=== PATIENT | male | born 1935 | race Caucasian/White ===

== ENCOUNTER → 2016-02-16 | Outpatient (CLI) | payer MEDICARE, OTHER, MEDICAID ==
[~2016-02-16] MED LIST: ALDACTONE 25MG25 MG PO; BACTRIM DS 8001 TAB PO; CEPHALEXIN500 M1 PO; COUGH DROPS1 LOZ PO; DETROL LA4 MG PO; DULCOLAX10 MG RC; HUMALOG100 U/ML SQ; KLOR-CON20 MEQ PO; LAMISIL1% TP; LANTUS100 U/ML SQ; LASIX80 M1 PO; MAGNESIUM HYDROXIDE PO; MICONAZOLE CREA30 GM TOP; NITROSTAT0.4 MG/TAB SL; NORCO 325 MG-51 TAB PO; OMEPRAZOLE DR20 MG PO; PENTOXIFYLLINE400 MG PO; TYLENOL 325MG325 MG PO
== END ==
LOC: LAB 06:45
DX: E11.9 Type 2 diabetes mellitus without complications (principal)

== ENCOUNTER → 2016-05-16 | Outpatient (CLI) | payer MEDICARE, OTHER, MEDICAID | LOC: LAB 05:10 | DX: E11.9 Type 2 diabetes mellitus without complications (principal); I25.10 Atherosclerotic heart disease of native coronary artery without angina pectoris ==

== ENCOUNTER → 2016-08-15 | Outpatient (CLI) | payer MEDICARE, OTHER, MEDICAID ==
[2014-01-24 12:12] VITALS: BP 127/65
== END ==
LOC: LAB 06:10
DX: E11.9 Type 2 diabetes mellitus without complications (principal); I10 Essential (primary) hypertension

== ENCOUNTER → 2016-09-17 | Outpatient (CLI) | payer MEDICARE, OTHER, MEDICAID ==
[2014-01-24 12:12] VITALS: BP 127/65
== END ==
LOC: LAB 06:45
DX: E11.9 Type 2 diabetes mellitus without complications (principal)

== ENCOUNTER → 2016-11-15 | Outpatient (CLI) | payer MEDICARE, OTHER, MEDICAID ==
[2014-01-24 12:12] VITALS: BP 127/65
== END ==
LOC: LAB 07:00
DX: E11.8 Type 2 diabetes mellitus with unspecified complications (principal)

== ENCOUNTER → 2016-11-19 | Outpatient (CLI) | payer MEDICARE, OTHER, MEDICAID ==
[2014-01-24 12:12] VITALS: BP 127/65
== END ==
LOC: LAB 06:15
DX: I25.10 Atherosclerotic heart disease of native coronary artery without angina pectoris (principal); E11.9 Type 2 diabetes mellitus without complications; I10 Essential (primary) hypertension

== ENCOUNTER → 2016-12-17 | Outpatient (CLI) | payer MEDICARE, OTHER, MEDICAID ==
[2014-01-24 12:12] VITALS: BP 127/65
== END ==
LOC: LAB 06:15
DX: E11.9 Type 2 diabetes mellitus without complications (principal)

== ENCOUNTER → 2017-01-09 | Outpatient (CLI) | payer MEDICARE, OTHER, MEDICAID ==
[2014-01-24 12:12] VITALS: BP 127/65
[2017-01-09 12:44] LABS: BUN/CREATININE RATIO 15.2 (6.0-26.0); CALCIUM 8.9 mg/dL (8.4-10.2); POTASSIUM 4.5 mmol/L (3.6-5.0)
[2017-01-09 14:31] LABS: URINE APPEARANCE CLEAR; URINE COLOR YELLOW
[2017-01-09 14:32] LABS: URINE BILIRUBIN NEGATIVE (NEGATIVE); URINE BLOOD NEGATIVE (NEGATIVE); URINE KETONE NEGATIVE (NEGATIVE); URINE LEUKOCYTE ESTERASE NEGATIVE (NEGATIVE); URINE NITRATE NEGATIVE (NEGATIVE); URINE PROTEIN(semi-quant) NEGATIVE (NEGATIVE); URINE UROBILINOGEN NORMAL (NORMAL); URINE WBC 0-1 /hpf (0-3)
== END ==
LOC: LAB 12:15
PROVIDERS: Family Medicine
DX: E11.51 Type 2 diabetes mellitus with diabetic peripheral angiopathy without gangrene (principal)

== ENCOUNTER → 2017-02-15 | Outpatient (CLI) | payer MEDICARE, OTHER, MEDICAID ==
[2014-01-24 12:12] VITALS: BP 127/65
== END ==
LOC: LAB 11:34
DX: E11.9 Type 2 diabetes mellitus without complications (principal)

== ENCOUNTER → 2017-03-29 | Outpatient (CLI) | payer MEDICARE, OTHER, MEDICAID ==
[2014-01-24 12:12] VITALS: BP 127/65
== END ==
LOC: LAB 12:34
DX: Z13.83 Encounter for screening for respiratory disorder NEC (principal); R50.9 Fever, unspecified

== ENCOUNTER → 2017-03-29 | Outpatient (CLI) | payer MEDICARE, OTHER, MEDICAID ==
[2014-01-24 12:12] VITALS: BP 127/65
== END ==
LOC: LAB 06:30
DX: R07.0 Pain in throat (principal)

== ENCOUNTER → 2017-05-16 | Outpatient (CLI) | payer MEDICARE, OTHER, MEDICAID ==
[2014-01-24 12:12] VITALS: BP 127/65
[2017-05-16 07:10] LABS: ALBUMIN 3.2 g/dL (3.5-5.0); BUN/CREATININE RATIO 15.6 (6.0-26.0); CALCIUM 8.6 mg/dL (8.4-10.2); POTASSIUM 4.1 mmol/L (3.6-5.0); TOTAL BILIRUBIN 0.4 mg/dL (0.2-1.3); TOTAL PROTEIN 6.6 g/dL (6.3-8.2)
[2017-05-16 07:11] LABS: EOS # 0.3 (0.04-0.40); EOS % 4.2 % (0.0-4.0); HEMATOCRIT 42.1 % (42.0-52.0); LYMPH# 2.3 (1.50-4.00); MEAN CELL VOLUME 93 fl (78-100); MEAN CORPUSCULAR HEMOGLOBIN 31 pg (27-31); MEAN CORPUSCULAR HGB CONC 33 g/dL (33-37); MEAN PLATELET VOLUME 9.6 fl (7.4-10.4); MONO # 0.7 (0.20-0.80); NEU # 3.2 (1.40-6.50); PLATELET COUNT 193 K/mm3 (130-400); RED BLOOD COUNT 4.55 M/mm3 (4.20-5.60); RED CELL DISTRIBUTION WIDTH 13.6 % (11.5-14.5); WHITE BLOOD COUNT 6.5 K/mm3 (4.8-10.8)
[2017-05-16 14:19] LABS: PH-URINE 6.5 (5.0 - 8.0); URINE APPEARANCE CLEAR; URINE BILIRUBIN NEGATIVE (NEGATIVE); URINE BLOOD NEGATIVE (NEGATIVE); URINE COLOR YELLOW; URINE GLUCOSE NEGATIVE (NEGATIVE); URINE KETONE NEGATIVE (NEGATIVE); URINE LEUKOCYTE ESTERASE NEGATIVE (NEGATIVE); URINE NITRATE NEGATIVE (NEGATIVE); URINE PROTEIN(semi-quant) TRACE mg/dL (NEGATIVE); URINE UROBILINOGEN NORMAL (NORMAL)
[2017-05-16 14:20] LABS: ERYTHROCYTE SEDIMENTATION RATE 6 mm/hr (0-20)
[2017-05-16 16:10] LABS: CREATININE OTHER SOURCE 52 mg/dL (())
[2017-05-17 00:31] LABS: TESTOSTERONE 337 ng/dL (221-716)
== END ==
LOC: LAB 06:02
PROVIDERS: Internal Medicine
DX: E11.40 Type 2 diabetes mellitus with diabetic neuropathy, unspecified (principal); N52.9 Male erectile dysfunction, unspecified; I10 Essential (primary) hypertension; Z12.5 Encounter for screening for malignant neoplasm of prostate

== ENCOUNTER → 2017-06-11 | Outpatient (CLI) | payer MEDICARE, OTHER, MEDICAID ==
[2014-01-24 12:12] VITALS: BP 127/65
[2017-06-11 15:09] LABS: EOS # 0.3 (0.04-0.40); EOS % 2.8 % (0.0-4.0); HEMATOCRIT 47.6 % (42.0-52.0); HEMOGLOBIN 15.5 g/dL (13.5-18.0); LYMPH# 3.8 (1.50-4.00); MEAN CELL VOLUME 92 fl (78-100); MEAN CORPUSCULAR HEMOGLOBIN 30 pg (27-31); MEAN CORPUSCULAR HGB CONC 33 g/dL (33-37); MEAN PLATELET VOLUME 9.1 fl (7.4-10.4); MONO # 0.9 (0.20-0.80); NEU # 4.7 (1.40-6.50); PLATELET COUNT 255 K/mm3 (130-400); RED BLOOD COUNT 5.16 M/mm3 (4.20-5.60); RED CELL DISTRIBUTION WIDTH 14.3 % (11.5-14.5); WHITE BLOOD COUNT 9.8 K/mm3 (4.8-10.8)
[2017-06-11 15:23] LABS: BUN/CREATININE RATIO 15.9 (6.0-26.0); CALCIUM 8.9 mg/dL (8.4-10.2); POTASSIUM 3.6 mmol/L (3.6-5.0)
== END ==
LOC: LAB 14:54
PROVIDERS: Nurse Practitioner Family
DX: I73.9 Peripheral vascular disease, unspecified (principal); L03.90 Cellulitis, unspecified; R60.0 Localized edema

== ENCOUNTER → 2017-08-07 | Outpatient (CLI) | payer MEDICARE, OTHER, MEDICAID ==
[2014-01-24 12:12] VITALS: BP 127/65
[2017-08-07 08:44] LABS: BUN/CREATININE RATIO 19.5 (6.0-26.0); POTASSIUM 3.7 mmol/L (3.6-5.0)
== END ==
LOC: LAB 07:48
PROVIDERS: Internal Medicine
DX: I50.9 Heart failure, unspecified (principal); I10 Essential (primary) hypertension

== ENCOUNTER → 2017-08-13 | Outpatient (CLI) | payer MEDICARE, OTHER, MEDICAID ==
[2014-01-24 12:12] VITALS: BP 127/65
== END ==
LOC: LAB 14:37
DX: L03.115 Cellulitis of right lower limb (principal)

== ENCOUNTER → 2017-08-20 | Outpatient (CLI) | payer MEDICARE, OTHER, MEDICAID ==
[2014-01-24 12:12] VITALS: BP 127/65
[2017-08-20 12:48] LABS: BUN/CREATININE RATIO 12.5 (6.0-26.0); CALCIUM 8.3 mg/dL (8.4-10.2); POTASSIUM 4.3 mmol/L (3.6-5.0)
== END ==
LOC: LAB 12:25
PROVIDERS: Internal Medicine
DX: E11.9 Type 2 diabetes mellitus without complications (principal); L03.115 Cellulitis of right lower limb; R60.9 Edema, unspecified

== ENCOUNTER → 2017-09-16 | Outpatient (CLI) | payer MEDICARE, OTHER, MEDICAID ==
[2014-01-24 12:12] VITALS: BP 127/65
== END ==
LOC: LAB 06:25
DX: E11.9 Type 2 diabetes mellitus without complications (principal)

== ENCOUNTER → 2017-09-23 | Outpatient (CLI) | payer MEDICARE, OTHER, MEDICAID ==
[2014-01-24 12:12] VITALS: BP 127/65
== END ==
LOC: LAB 13:50
DX: Z12.5 Encounter for screening for malignant neoplasm of prostate (principal); R20.2 Paresthesia of skin; E11.40 Type 2 diabetes mellitus with diabetic neuropathy, unspecified; N52.9 Male erectile dysfunction, unspecified; I10 Essential (primary) hypertension

== ENCOUNTER → 2017-10-17 | Outpatient (CLI) | payer MEDICARE, OTHER, MEDICAID ==
[2014-01-24 12:12] VITALS: BP 127/65
== END ==
LOC: LAB 11:00
DX: E11.9 Type 2 diabetes mellitus without complications (principal)

== ENCOUNTER → 2017-11-15 | Outpatient (CLI) | payer MEDICARE, OTHER, MEDICAID ==
[2014-01-24 12:12] VITALS: BP 127/65
[2017-11-15 08:43] LABS: HEMATOCRIT 45.4 % (42.0-52.0); HEMOGLOBIN 15.1 g/dL (13.5-18.0); MEAN PLATELET VOLUME 9.8 fl (7.4-10.4); RED BLOOD COUNT 4.93 M/mm3 (4.20-5.60); RED CELL DISTRIBUTION WIDTH 13.5 % (11.5-14.5); WHITE BLOOD COUNT 7.3 K/mm3 (4.8-10.8)
[2017-11-15 08:50] LABS: ALBUMIN 3.9 g/dL (3.5-5.0); CALCIUM 8.6 mg/dL (8.4-10.2); POTASSIUM 3.8 mmol/L (3.6-5.0); TOTAL BILIRUBIN 0.8 mg/dL (0.2-1.3); TOTAL PROTEIN 7.6 g/dL (6.3-8.2)
== END ==
LOC: LAB 07:30
PROVIDERS: Internal Medicine
DX: E11.9 Type 2 diabetes mellitus without complications (principal); I70.90 Unspecified atherosclerosis

== ENCOUNTER → 2017-12-07 | Outpatient (CLI) | payer MEDICARE, OTHER, MEDICAID ==
[2014-01-24 12:12] VITALS: BP 127/65
[2017-12-07 15:41] LABS: PH-URINE 6.5 (5.0 - 8.0); URINE APPEARANCE CLOUDY; URINE BILIRUBIN NEGATIVE (NEGATIVE); URINE BLOOD TRACE (NEGATIVE); URINE COLOR YELLOW; URINE GLUCOSE NEGATIVE (NEGATIVE); URINE KETONE NEGATIVE (NEGATIVE); URINE LEUKOCYTE ESTERASE 2+ (NEGATIVE); URINE NITRATE NEGATIVE (NEGATIVE); URINE PROTEIN(semi-quant) TRACE mg/dL (NEGATIVE); URINE UROBILINOGEN NORMAL (NORMAL); URINE WBC >50 /hpf (0-3)
== END ==
LOC: LAB 14:17
PROVIDERS: Internal Medicine
DX: R30.0 Dysuria (principal)

== ENCOUNTER → 2017-12-17 | Outpatient (CLI) | payer MEDICARE, OTHER, MEDICAID ==
[2014-01-24 12:12] VITALS: BP 127/65
== END ==
LOC: LAB 05:45
DX: E11.9 Type 2 diabetes mellitus without complications (principal)

== ENCOUNTER → 2018-02-06 | Outpatient (CLI) | payer MEDICARE, OTHER, MEDICAID ==
[2014-01-24 12:12] VITALS: BP 127/65
[2018-02-06 11:44] LABS: ALBUMIN 4.3 g/dL (3.5-5.0); CALCIUM 8.9 mg/dL (8.4-10.2); POTASSIUM 4.1 mmol/L (3.6-5.0); TOTAL BILIRUBIN 0.6 mg/dL (0.2-1.3); TOTAL PROTEIN 7.8 g/dL (6.3-8.2)
[2018-02-06 12:13] LABS: URINE APPEARANCE CLEAR; URINE BILIRUBIN NEGATIVE (NEGATIVE); URINE BLOOD NEGATIVE (NEGATIVE); URINE COLOR YELLOW; URINE KETONE NEGATIVE (NEGATIVE); URINE LEUKOCYTE ESTERASE NEGATIVE (NEGATIVE); URINE NITRATE NEGATIVE (NEGATIVE); URINE PROTEIN(semi-quant) TRACE mg/dL (NEGATIVE); URINE UROBILINOGEN NORMAL (NORMAL); URINE WBC 0-1 /hpf (0-3)
[2018-02-06 13:41] LABS: ERYTHROCYTE SEDIMENTATION RATE 14 mm/hr (0-20)
[2018-02-06 13:44] LABS: EOS # 0.1 (0.04-0.40); EOS % 1.8 % (0.0-4.0); HEMATOCRIT 45.6 % (42.0-52.0); LYMPH# 1.9 (1.50-4.00); MEAN CELL VOLUME 92 fl (78-100); MEAN CORPUSCULAR HEMOGLOBIN 30 pg (27-31); MEAN CORPUSCULAR HGB CONC 33 g/dL (33-37); MEAN PLATELET VOLUME 10.1 fl (7.4-10.4); MONO # 0.5 (0.20-0.80); NEU # 4.6 (1.40-6.50); PLATELET COUNT 239 K/mm3 (130-400); RED BLOOD COUNT 4.98 M/mm3 (4.20-5.60); RED CELL DISTRIBUTION WIDTH 14.2 % (11.5-14.5); WHITE BLOOD COUNT 7.3 K/mm3 (4.8-10.8)
[2018-02-07 12:40] LABS: TESTOSTERONE 303 ng/dL (221-716)
== END ==
LOC: LAB 11:08
PROVIDERS: Internal Medicine
DX: E11.40 Type 2 diabetes mellitus with diabetic neuropathy, unspecified (principal); I10 Essential (primary) hypertension; G47.33 Obstructive sleep apnea (adult) (pediatric); N52.9 Male erectile dysfunction, unspecified

== ENCOUNTER → 2018-05-16 | Outpatient (CLI) | payer MEDICARE, OTHER ==
[2014-01-24 12:12] VITALS: BP 127/65
[2018-05-16 08:55] LABS: EOS # 0.1 (0.04-0.40); EOS % 1.2 % (0.0-4.0); HEMATOCRIT 44.1 % (42.0-52.0); HEMOGLOBIN 14.6 g/dL (13.5-18.0); LYMPH# 1.9 (1.50-4.00); MEAN CELL VOLUME 92 fl (78-100); MEAN CORPUSCULAR HEMOGLOBIN 31 pg (27-31); MEAN CORPUSCULAR HGB CONC 33 g/dL (33-37); MEAN PLATELET VOLUME 9.8 fl (7.4-10.4); NEU # 8.8 (1.40-6.50); PLATELET COUNT 211 K/mm3 (130-400); RED BLOOD COUNT 4.79 M/mm3 (4.20-5.60); RED CELL DISTRIBUTION WIDTH 13.7 % (11.5-14.5); WHITE BLOOD COUNT 11.9 K/mm3 (4.8-10.8)
[2018-05-16 09:04] LABS: ALBUMIN 4.1 g/dL (3.5-5.0); CALCIUM 8.8 mg/dL (8.4-10.2); POTASSIUM 4.1 mmol/L (3.6-5.0); TOTAL BILIRUBIN 0.8 mg/dL (0.2-1.3); TOTAL PROTEIN 7.6 g/dL (6.3-8.2)
== END ==
LOC: LAB 07:55
PROVIDERS: Internal Medicine
DX: E11.9 Type 2 diabetes mellitus without complications (principal); R60.9 Edema, unspecified

== ENCOUNTER → 2018-05-22 | Outpatient (CLI) | payer MEDICARE, OTHER ==
[2014-01-24 12:12] VITALS: BP 127/65
[2018-05-22 08:34] LABS: HEMATOCRIT 44.4 % (42.0-52.0); HEMOGLOBIN 14.4 g/dL (13.5-18.0); MEAN PLATELET VOLUME 9.5 fl (7.4-10.4); RED BLOOD COUNT 4.8 M/mm3 (4.20-5.60); RED CELL DISTRIBUTION WIDTH 13.7 % (11.5-14.5); WHITE BLOOD COUNT 6.8 K/mm3 (4.8-10.8)
== END ==
LOC: LAB 07:20
PROVIDERS: Internal Medicine
DX: D72.829 Elevated white blood cell count, unspecified (principal)

== ENCOUNTER → 2018-05-27 | Outpatient (CLI) | payer MEDICARE, OTHER ==
[2014-01-24 12:12] VITALS: BP 127/65
[2018-05-27 11:11] LABS: EOS # 0.1 (0.04-0.40); EOS % 1.2 % (0.0-4.0); HEMATOCRIT 43.3 % (42.0-52.0); HEMOGLOBIN 14.1 g/dL (13.5-18.0); LYMPH# 1.6 (1.50-4.00); MEAN CELL VOLUME 93 fl (78-100); MEAN CORPUSCULAR HEMOGLOBIN 30 pg (27-31); MEAN CORPUSCULAR HGB CONC 33 g/dL (33-37); MEAN PLATELET VOLUME 8.8 fl (7.4-10.4); MONO # 0.7 (0.20-0.80); NEU # 6.2 (1.40-6.50); PLATELET COUNT 236 K/mm3 (130-400); RED BLOOD COUNT 4.68 M/mm3 (4.20-5.60); RED CELL DISTRIBUTION WIDTH 13.5 % (11.5-14.5); WHITE BLOOD COUNT 8.5 K/mm3 (4.8-10.8)
[2018-05-27 11:27] LABS: URINE APPEARANCE CLOUDY; URINE COLOR YELLOW; URINE GLUCOSE NEGATIVE (NEGATIVE); URINE PROTEIN(semi-quant) 1+ mg/dL (NEGATIVE)
[2018-05-27 11:28] LABS: URINE BILIRUBIN NEGATIVE (NEGATIVE); URINE BLOOD 50 ery/uL (NEGATIVE); URINE KETONE NEGATIVE (NEGATIVE); URINE LEUKOCYTE ESTERASE 2+ (NEGATIVE); URINE NITRATE POSITIVE (NEGATIVE); URINE UROBILINOGEN NORMAL (NORMAL); URINE WBC >50 /hpf (0-3)
== END ==
LOC: LAB 10:47
PROVIDERS: Nurse Practitioner Family
DX: K44.9 Diaphragmatic hernia without obstruction or gangrene (principal); R05 Cough; R30.0 Dysuria

== ENCOUNTER → 2018-09-25 | Outpatient (CLI) | payer MEDICARE, OTHER ==
[2014-01-24 12:12] VITALS: BP 127/65
[2018-09-25 10:30] LABS: EOS # 0.2 (0.04-0.40); EOS % 3.1 % (0.0-4.0); HEMATOCRIT 43.2 % (42.0-52.0); HEMOGLOBIN 14.1 g/dL (13.5-18.0); LYMPH# 1.8 (1.50-4.00); MEAN CELL VOLUME 92 fl (78-100); MEAN CORPUSCULAR HEMOGLOBIN 30 pg (27-31); MEAN CORPUSCULAR HGB CONC 33 g/dL (33-37); MONO # 0.7 (0.20-0.80); NEU # 4.5 (1.40-6.50); PLATELET COUNT 232 K/mm3 (130-400); RED CELL DISTRIBUTION WIDTH 13.2 % (11.5-14.5); WHITE BLOOD COUNT 7.2 K/mm3 (4.8-10.8)
[2018-09-25 10:39] LABS: ALBUMIN 3.6 g/dL (3.4-4.8); POTASSIUM 3.8 mmol/L (3.5-5.1)
[2018-09-25 10:41] LABS: CALCIUM 8.7 mg/dL (8.3-10.5)
[2018-09-25 10:42] LABS: TOTAL PROTEIN 7.6 g/dL (6.2-8.1)
[2018-09-25 10:44] LABS: TOTAL BILIRUBIN 0.6 mg/dL (0.2-1.2)
== END ==
LOC: LAB 10:18
PROVIDERS: Internal Medicine
DX: E11.40 Type 2 diabetes mellitus with diabetic neuropathy, unspecified (principal); I10 Essential (primary) hypertension; G47.33 Obstructive sleep apnea (adult) (pediatric)

== ENCOUNTER 2018-10-03 14:55 | Emergency (ER) | payer MEDICARE, OTHER ==
[~2018-10-03] VITALS: Ht 154.9 cm; Wt 115.5 kg
[~2018-10-03 14:55] MED LIST changes: +INSULIN HUMA100 U/ML SQ; +LANTUS PEN100 U/ML SQ; -LANTUS100 U/ML SQ
[2018-10-03 15:29] LABS: HEMATOCRIT 43.2 % (42.0-52.0); HEMOGLOBIN 14.6 g/dL (13.5-18.0); MEAN CELL VOLUME 88 fl (78-100); MEAN CORPUSCULAR HEMOGLOBIN 30 pg (27-31); MEAN CORPUSCULAR HGB CONC 34 g/dL (33-37); MEAN PLATELET VOLUME 9.2 fl (7.4-10.4); PLATELET COUNT 230 K/mm3 (130-400); RED BLOOD COUNT 4.93 M/mm3 (4.20-5.60); RED CELL DISTRIBUTION WIDTH 12.9 % (11.5-14.5)
[2018-10-03 15:53] LABS: ALBUMIN 3.5 g/dL (3.4-4.8)
[2018-10-03 15:54] LABS: POTASSIUM 4.5 mmol/L (3.5-5.1)
[2018-10-03 15:55] LABS: CALCIUM 8.2 mg/dL (8.3-10.5)
[2018-10-03 15:56] LABS: TOTAL PROTEIN 7.1 g/dL (6.2-8.1)
[2018-10-03 15:58] LABS: TOTAL BILIRUBIN 0.6 mg/dL (0.2-1.2)
[2018-10-03] MEDS ORDERED: INSULIN HUMA100 U/ML SQ ×2 (16:02→16:04)
[2018-10-03] MEDS ORDERED: DITROPAN 5MG TAB5 MG PO (16:06)
[2018-10-03] MEDS ORDERED: LASIX80 M1 PO (16:06)
[2018-10-03] MEDS ORDERED: ROBITUSSIN COU237 M2 PO (16:07)
[2018-10-03] MEDS ORDERED: PEPCID 20MG TAB20 MG PO (16:07)
[2018-10-03] MEDS ORDERED: CYANOCOBAL1000 MCG/1 IM (16:09)
[2018-10-03 16:17] LABS: LYMPHOCYTE 10 % (20-51); MONOCYTE 4 % (3-10); NEUTROPHILS 86 % (42-75)
[2018-10-03 16:18] LABS: URINE APPEARANCE CLEAR; URINE BILIRUBIN NEGATIVE (NEGATIVE); URINE BLOOD NEGATIVE (NEGATIVE); URINE COLOR YELLOW; URINE KETONE NEGATIVE (NEGATIVE); URINE LEUKOCYTE ESTERASE NEGATIVE (NEGATIVE); URINE NITRATE NEGATIVE (NEGATIVE); URINE PROTEIN(semi-quant) TRACE mg/dL (NEGATIVE); URINE UROBILINOGEN NORMAL (NORMAL)
[2018-10-03 16:19] LABS: URINE WBC 0-1 /hpf (0-3)
[2018-10-03 18:17] VITALS: BP 168/60
== END 2018-10-03 19:45 | disposition short-term general hospital (02) ==
LOC: ED 14:55
PROVIDERS: Nurse Practitioner
DX: E87.1 Hypo-osmolality and hyponatremia (principal); I11.0 Hypertensive heart disease with heart failure; E11.9 Type 2 diabetes mellitus without complications; I73.9 Peripheral vascular disease, unspecified; I50.9 Heart failure, unspecified; Z98.890 Other specified postprocedural states; Z79.4 Long term (current) use of insulin
CPT/HCPCS: J7030

== ENCOUNTER → 2018-10-10 | Outpatient (CLI) | payer MEDICARE, OTHER ==
[2018-10-03 18:17] VITALS: BP 168/60
[~2018-10-10] MED LIST changes: +CYANOCOBAL1000 MCG/1 IM; +DITROPAN 5MG TAB5 MG PO; +PEPCID 20MG TAB20 MG PO; +ROBITUSSIN COU237 M2 PO
[2018-10-10 17:44] LABS: URINE APPEARANCE HAZY; URINE COLOR YELLOW
[2018-10-10 17:45] LABS: URINE BILIRUBIN NEGATIVE (NEGATIVE); URINE GLUCOSE NEGATIVE (NEGATIVE); URINE KETONE NEGATIVE (NEGATIVE); URINE NITRATE NEGATIVE (NEGATIVE); URINE PROTEIN(semi-quant) TRACE mg/dL (NEGATIVE); URINE UROBILINOGEN NORMAL (NORMAL)
[2018-10-10 17:46] LABS: URINE BLOOD NEGATIVE (NEGATIVE); URINE LEUKOCYTE ESTERASE 1+ (NEGATIVE); URINE WBC 0-1 /hpf (0-3)
[2018-10-10 17:47] LABS: URINE MUCUS PRESENT (NOT PRESENT)
== END ==
LOC: LAB 16:25
PROVIDERS: Internal Medicine
DX: N30.90 Cystitis, unspecified without hematuria (principal)

== ENCOUNTER → 2018-11-17 | Outpatient (CLI) | payer MEDICARE, OTHER ==
[2018-11-17 08:32] LABS: HEMATOCRIT 47.4 % (42.0-52.0); HEMOGLOBIN 15.3 g/dL (13.5-18.0); MEAN PLATELET VOLUME 9.8 fl (7.4-10.4); RED BLOOD COUNT 5.34 M/mm3 (4.20-5.60); RED CELL DISTRIBUTION WIDTH 14.3 % (11.5-14.5); WHITE BLOOD COUNT 11.9 K/mm3 (4.8-10.8)
[2018-11-17 08:39] LABS: POTASSIUM 3.4 mmol/L (3.5-5.1)
[2018-11-17 08:40] LABS: ALBUMIN 3.6 g/dL (3.4-4.8)
[2018-11-17 08:41] LABS: CALCIUM 8.7 mg/dL (8.3-10.5)
[2018-11-17 08:44] LABS: TOTAL BILIRUBIN 0.5 mg/dL (0.2-1.2)
== END ==
LOC: LAB 07:05
PROVIDERS: Internal Medicine
DX: E11.65 Type 2 diabetes mellitus with hyperglycemia (principal)

== ENCOUNTER → 2018-12-02 | Outpatient (CLI) | payer MEDICARE, OTHER ==
[2018-12-02 06:00] LABS: CALCIUM 8.9 mg/dL (8.3-10.5); MAGNESIUM 2.04 mg/dL (1.60-2.60); POTASSIUM 3.4 mmol/L (3.5-5.1)
== END ==
LOC: LAB 05:20
PROVIDERS: Internal Medicine
DX: I10 Essential (primary) hypertension (principal)

== ENCOUNTER → 2019-01-02 | Outpatient (CLI) | payer MEDICARE, OTHER ==
[2019-01-02 10:01] LABS: POTASSIUM 3.9 mmol/L (3.5-5.1)
[2019-01-02 10:02] LABS: CALCIUM 9.2 mg/dL (8.3-10.5)
[2019-01-02 10:08] LABS: MAGNESIUM 1.95 mg/dL (1.60-2.60)
== END ==
LOC: LAB 09:25
PROVIDERS: Internal Medicine
DX: E11.9 Type 2 diabetes mellitus without complications (principal); I50.9 Heart failure, unspecified

== ENCOUNTER → 2019-02-16 | Outpatient (CLI) | payer MEDICARE, OTHER ==
[2019-02-16 08:16] LABS: POTASSIUM 3.9 mmol/L (3.5-5.1)
[2019-02-16 08:17] LABS: ALBUMIN 3.9 g/dL (3.4-4.8)
[2019-02-16 08:18] LABS: CALCIUM 9.3 mg/dL (8.3-10.5); EOS # 0.4 (0.04-0.40); HEMATOCRIT 46.5 % (42.0-52.0); HEMOGLOBIN 15.4 g/dL (13.5-18.0); LYMPH# 2.8 (1.50-4.00); MEAN CELL VOLUME 90 fl (78-100); MEAN CORPUSCULAR HEMOGLOBIN 30 pg (27-31); MEAN CORPUSCULAR HGB CONC 33 g/dL (33-37); MEAN PLATELET VOLUME 10.1 fl (7.4-10.4); MONO # 0.7 (0.20-0.80); NEU # 3.3 (1.40-6.50); PLATELET COUNT 227 K/mm3 (130-400); RED BLOOD COUNT 5.16 M/mm3 (4.20-5.60); RED CELL DISTRIBUTION WIDTH 14.3 % (11.5-14.5); WHITE BLOOD COUNT 7.1 K/mm3 (4.8-10.8)
[2019-02-16 08:19] LABS: TOTAL PROTEIN 7.5 g/dL (6.2-8.1)
[2019-02-16 08:21] LABS: TOTAL BILIRUBIN 0.7 mg/dL (0.2-1.2)
[2019-02-16 09:13] LABS: EOS % 5.6 % (0.0-4.0)
[2019-02-16 09:22] LABS: ERYTHROCYTE SEDIMENTATION RATE 11 mm/hr (0-20)
== END ==
LOC: LAB 07:25
PROVIDERS: Internal Medicine
DX: Z12.5 Encounter for screening for malignant neoplasm of prostate (principal); E11.40 Type 2 diabetes mellitus with diabetic neuropathy, unspecified; E11.65 Type 2 diabetes mellitus with hyperglycemia; I11.0 Hypertensive heart disease with heart failure; I50.9 Heart failure, unspecified; G47.33 Obstructive sleep apnea (adult) (pediatric); N52.9 Male erectile dysfunction, unspecified

== ENCOUNTER → 2019-05-18 | Outpatient (CLI) | payer MEDICARE, OTHER ==
[2019-05-18 10:57] LABS: HEMATOCRIT 46.9 % (42.0-52.0); HEMOGLOBIN 15.3 g/dL (13.5-18.0); MEAN PLATELET VOLUME 10.5 fl (7.4-10.4); RED BLOOD COUNT 5.2 M/mm3 (4.20-5.60); RED CELL DISTRIBUTION WIDTH 14.7 % (11.5-14.5); WHITE BLOOD COUNT 6.2 K/mm3 (4.8-10.8)
[2019-05-18 11:03] LABS: ALBUMIN 3.6 g/dL (3.4-4.8); POTASSIUM 3.2 mmol/L (3.5-5.1)
[2019-05-18 11:04] LABS: CALCIUM 8.6 mg/dL (8.3-10.5)
[2019-05-18 11:07] LABS: TOTAL BILIRUBIN 0.6 mg/dL (0.2-1.2)
== END ==
LOC: LAB 10:29
PROVIDERS: Internal Medicine
DX: E11.9 Type 2 diabetes mellitus without complications (principal)

== ENCOUNTER → 2019-05-26 | Outpatient (CLI) | payer MEDICARE, OTHER ==
[2019-05-26 06:23] LABS: POTASSIUM 3.7 mmol/L (3.5-5.1)
[2019-05-26 06:25] LABS: CALCIUM 8.6 mg/dL (8.3-10.5)
[2019-05-26 06:32] LABS: MAGNESIUM 2.03 mg/dL (1.60-2.60)
== END ==
LOC: LAB 05:30
PROVIDERS: Internal Medicine
DX: I10 Essential (primary) hypertension (principal)

== ENCOUNTER → 2019-07-10 | Outpatient (CLI) | payer MEDICARE, OTHER ==
[2019-07-10 08:21] LABS: POTASSIUM 4.4 mmol/L (3.5-5.1)
[2019-07-10 08:29] LABS: MAGNESIUM 2.18 mg/dL (1.60-2.60)
== END ==
LOC: LAB 07:55
PROVIDERS: Internal Medicine
DX: I11.0 Hypertensive heart disease with heart failure (principal); E11.65 Type 2 diabetes mellitus with hyperglycemia; E11.40 Type 2 diabetes mellitus with diabetic neuropathy, unspecified; G47.33 Obstructive sleep apnea (adult) (pediatric); I50.9 Heart failure, unspecified

== ENCOUNTER → 2019-11-13 | Outpatient (CLI) | payer MEDICARE, OTHER ==
[2019-11-13 08:04] LABS: HEMATOCRIT 42.4 % (42.0-52.0); HEMOGLOBIN 14.1 g/dL (13.5-18.0); MEAN CELL VOLUME 90 fl (78-100); MEAN CORPUSCULAR HEMOGLOBIN 30 pg (27-31); MEAN CORPUSCULAR HGB CONC 33 g/dL (33-37); PLATELET COUNT 180 K/mm3 (130-400); RED BLOOD COUNT 4.72 M/mm3 (4.20-5.60); RED CELL DISTRIBUTION WIDTH 13.9 % (11.5-14.5); WHITE BLOOD COUNT 6.8 K/mm3 (4.8-10.8)
[2019-11-13 08:06] LABS: ALBUMIN 3.4 g/dL (3.4-4.8); POTASSIUM 4.1 mmol/L (3.5-5.1)
[2019-11-13 08:07] LABS: CALCIUM 8.3 mg/dL (8.3-10.5)
[2019-11-13 08:09] LABS: TOTAL PROTEIN 6.1 g/dL (6.2-8.1)
[2019-11-13 08:11] LABS: TOTAL BILIRUBIN 0.4 mg/dL (0.2-1.2)
[2019-11-13 09:38] LABS: EOS # 0.4 (0.04-0.40); EOS % 5.2 % (0.0-4.0); LYMPH# 2.6 (1.50-4.00); MONO # 0.6 (0.20-0.80); NEU # 3.1 (1.40-6.50)
[2019-11-13 09:50] LABS: ERYTHROCYTE SEDIMENTATION RATE 6 mm/hr (0-20)
== END ==
LOC: LAB 07:09
PROVIDERS: Internal Medicine
DX: E11.40 Type 2 diabetes mellitus with diabetic neuropathy, unspecified (principal); K90.9 Intestinal malabsorption, unspecified; I10 Essential (primary) hypertension; G47.33 Obstructive sleep apnea (adult) (pediatric)

== ENCOUNTER → 2019-12-14 | Outpatient (CLI) | payer MEDICARE, OTHER | LOC: LAB 13:36 | DX: K90.9 Intestinal malabsorption, unspecified (principal) ==

== ENCOUNTER → 2019-12-24 | Outpatient (CLI) | payer MEDICARE, OTHER | LOC: LAB 02:40 | DX: R19.7 Diarrhea, unspecified (principal) ==

== ENCOUNTER → 2020-01-01 | Outpatient (CLI) | payer MEDICARE, OTHER | LOC: LAB 13:00 | DX: R19.7 Diarrhea, unspecified (principal) ==

== ENCOUNTER → 2020-03-31 | Outpatient (CLI) | payer MEDICARE, OTHER | LOC: AMSURD 10:00 | DX: R00.1 Bradycardia, unspecified (principal) ==

== ENCOUNTER 2020-04-08 17:13 | Emergency (ER) | payer MEDICARE, MEDICAID ==
[2020-04-08] MEDS ORDERED: BENADRYL (17:54)
[2020-04-08] MEDS ORDERED: VITAMIN D21250 MC1 PO (17:55)
[2020-04-08] MEDS ORDERED: FLOMAX0.4 MG PO (17:56)
[2020-04-08] MEDS ORDERED: IMODIUM2 MG PO (17:56)
[2020-04-08] MEDS ORDERED: LEVEMIR100 U/M1 SQ (17:57)
[2020-04-08] MEDS ORDERED: MUCINEX 60600 MG/TA1 PO (17:58)
[2020-04-08] MEDS ORDERED: LEXAPRO5 MG PO (17:58)
[2020-04-08] MEDS ORDERED: NOVOLOG 100U100 U/ML SQ (18:01)
[2020-04-08 18:03] LABS: EOS # 0.1 (0.04-0.40); EOS % 1.3 % (0.0-4.0); HEMATOCRIT 45.7 % (42.0-52.0); HEMOGLOBIN 14.8 g/dL (13.5-18.0); LYMPH# 1.6 (1.50-4.00); MEAN CELL VOLUME 90 fl (78-100); MEAN CORPUSCULAR HEMOGLOBIN 29 pg (27-31); MEAN CORPUSCULAR HGB CONC 32 g/dL (33-37); MEAN PLATELET VOLUME 9.7 fl (7.4-10.4); MONO # 0.6 (0.20-0.80); NEU # 4.8 (1.40-6.50); PLATELET COUNT 224 K/mm3 (130-400); RED BLOOD COUNT 5.06 M/mm3 (4.20-5.60); RED CELL DISTRIBUTION WIDTH 14.7 % (11.5-14.5); WHITE BLOOD COUNT 7.1 K/mm3 (4.8-10.8)
[2020-04-08 18:12] LABS: ALBUMIN 3.7 g/dL (3.4-4.8); POTASSIUM 3.7 mmol/L (3.5-5.1); SODIUM 142 mmol/L (136-145)
[2020-04-08 18:13] LABS: CALCIUM 8.5 mg/dL (8.3-10.5)
[2020-04-08 18:14] LABS: GLUCOSE 159 mg/dL (75-110); TOTAL PROTEIN 7.2 g/dL (6.2-8.1)
[2020-04-08 18:15] LABS: CARBON DIOXIDE 23 mmol/L (23-31)
[2020-04-08 18:16] LABS: TOTAL BILIRUBIN 0.3 mg/dL (0.2-1.2)
[2020-04-08 18:20] LABS: AST-SGOT 15 U/L (5-34)
[2020-04-08 18:21] LABS: ALT/SGPT 13 U/L (0-55)
[2020-04-08 18:45] LABS: TROPONIN-I < 0.03 ng/mL (<0.030)
[2020-04-08 19:54] VITALS: BP 112/50
== END 2020-04-08 19:54 | disposition home or self-care (01) ==
LOC: ED 17:13
PROVIDERS: Family Medicine
DX: I48.92 Unspecified atrial flutter (principal); R00.1 Bradycardia, unspecified; I11.0 Hypertensive heart disease with heart failure; E11.9 Type 2 diabetes mellitus without complications; N40.0 Benign prostatic hyperplasia without lower urinary tract symptoms; Z79.4 Long term (current) use of insulin

== ENCOUNTER 2020-05-01 07:00 | Emergency (ER) | payer MEDICARE, OTHER ==
[~2020-05-01 07:00] MED LIST changes: +BENADRYL; +FLOMAX0.4 MG PO; +IMODIUM2 MG PO; +LEVEMIR100 U/M1 SQ; +LEXAPRO5 MG PO; +MUCINEX 60600 MG/TA1 PO; +NOVOLOG 100U100 U/ML SQ; +VITAMIN D21250 MC1 PO
[2020-05-01] MEDS ORDERED: LEVEMIR FLEX100 U/ML SQ (07:24)
[2020-05-01] MEDS ORDERED: CEPHALEXIN500 M1 PO (07:24)
[2020-05-01] MEDS ORDERED: ESCITALOPRAM10 MG PO (07:24)
[2020-05-01] MEDS ORDERED: ELIQUIS5 MG PO (07:25)
[2020-05-01] MEDS ORDERED: NOVOLOG FLEX100 U/ML SQ (07:27)
[2020-05-01] MEDS ORDERED: FAMOTIDINE20 MG PO (07:28)
[2020-05-01] MEDS ORDERED: VICTOZA 3-0.6 MG/0.1 SQ (07:28)
[2020-05-01] MEDS ORDERED: POTASSIUM CHLO10 ME6 PO (07:28)
[2020-05-01 11:09] VITALS: BP 162/72
== END 2020-05-01 10:56 | disposition home or self-care (01) ==
LOC: ED 07:00
DX: T82.897A Other specified complication of cardiac prosthetic devices, implants and grafts, initial encounter (principal); E11.9 Type 2 diabetes mellitus without complications; N40.1 Benign prostatic hyperplasia with lower urinary tract symptoms; Z79.4 Long term (current) use of insulin; Z79.01 Long term (current) use of anticoagulants

== ENCOUNTER → 2020-05-16 | Outpatient (CLI) | payer MEDICARE, OTHER ==
[2020-05-01 11:09] VITALS: BP 162/72
[~2020-05-16] MED LIST changes: +ELIQUIS5 MG PO; +ESCITALOPRAM10 MG PO; +FAMOTIDINE20 MG PO; +KLONOPIN 0.5MG0.5 MG PO; +LEVEMIR FLEX100 U/ML SQ; +NOVOLOG FLEX100 U/ML SQ; +POTASSIUM CHLO10 ME6 PO; +VICTOZA 3-0.6 MG/0.1 SQ
[2020-05-16 10:51] LABS: HEMATOCRIT 43.9 % (42.0-52.0); HEMOGLOBIN 14.4 g/dL (13.5-18.0); MEAN PLATELET VOLUME 9.9 fl (7.4-10.4); RED BLOOD COUNT 4.9 M/mm3 (4.20-5.60); RED CELL DISTRIBUTION WIDTH 14.5 % (11.5-14.5)
[2020-05-16 11:17] LABS: POTASSIUM 3.8 mmol/L (3.5-5.1)
[2020-05-16 11:18] LABS: ALBUMIN 3.5 g/dL (3.4-4.8)
[2020-05-16 11:19] LABS: CALCIUM 8.1 mg/dL (8.3-10.5)
[2020-05-16 11:20] LABS: TOTAL PROTEIN 6.8 g/dL (6.2-8.1)
[2020-05-16 11:22] LABS: TOTAL BILIRUBIN 0.6 mg/dL (0.2-1.2)
== END ==
LOC: LAB 10:22
PROVIDERS: Internal Medicine
DX: E11.9 Type 2 diabetes mellitus without complications (principal)

== ENCOUNTER → 2020-08-26 | Outpatient (CLI) | payer MEDICARE, OTHER ==
[2020-08-26 12:34] LABS: BASO # 0.03 (0.02-0.10); EOS # 0.18 (0.04-0.40); EOS % 2.7 % (0.0-4.0); HEMATOCRIT 45.3 % (42.0-52.0); HEMOGLOBIN 14.9 g/dL (13.5-18.0); MEAN CELL VOLUME 92 fl (78-100); MEAN CORPUSCULAR HEMOGLOBIN 30 pg (27-31); MEAN CORPUSCULAR HGB CONC 33 g/dL (33-37); MEAN PLATELET VOLUME 9.8 fl (7.4-10.4); MONO # 0.49 (0.20-0.80); NEU # 3.94 (1.40-6.50); PLATELET COUNT 172 K/mm3 (130-400); RED CELL DISTRIBUTION WIDTH 13.7 % (11.5-14.5); WHITE BLOOD COUNT 6.6 K/mm3 (4.8-10.8)
[2020-08-26 12:38] LABS: ALBUMIN 3.5 g/dL (3.4-4.8); POTASSIUM 3.9 mmol/L (3.5-5.1)
[2020-08-26 12:39] LABS: CALCIUM 8.7 mg/dL (8.3-10.5)
[2020-08-26 12:41] LABS: TOTAL PROTEIN 6.9 g/dL (6.2-8.1)
[2020-08-26 12:42] LABS: TOTAL BILIRUBIN 0.6 mg/dL (0.2-1.2)
[2020-08-26 12:47] LABS: MAGNESIUM 1.93 mg/dL (1.60-2.60)
== END ==
LOC: LAB 11:57
PROVIDERS: Internal Medicine
DX: K90.9 Intestinal malabsorption, unspecified (principal); I10 Essential (primary) hypertension; E11.9 Type 2 diabetes mellitus without complications

== ENCOUNTER → 2020-09-26 | Outpatient (CLI) | payer MEDICARE, OTHER | LOC: LAB 11:28 | DX: L03.116 Cellulitis of left lower limb (principal) ==

== ENCOUNTER → 2020-11-16 | Outpatient (CLI) | payer MEDICARE, OTHER ==
[2020-11-16 08:42] LABS: BASO # 0.03 K/mm3 (0.02-0.10); EOS % 3.5 % (0.0-4.0); HEMATOCRIT 46.1 % (42.0-52.0); LYMPH# 2.15 K/mm3 (1.50-4.00); MEAN CELL VOLUME 95 fl (78-100); MEAN CORPUSCULAR HEMOGLOBIN 31 pg (27-31); MEAN CORPUSCULAR HGB CONC 33 g/dL (33-37); MEAN PLATELET VOLUME 9.7 fl (7.4-10.4); MONO # 0.39 K/mm3 (0.20-0.80); NEU # 2.88 K/mm3 (1.40-6.50); PLATELET COUNT 173 K/mm3 (130-400); RED BLOOD COUNT 4.85 M/mm3 (4.20-5.60); RED CELL DISTRIBUTION WIDTH 13.5 % (11.5-14.5); WHITE BLOOD COUNT 5.7 K/mm3 (4.8-10.8)
[2020-11-16 08:52] LABS: ALBUMIN 3.6 g/dL (3.4-4.8); POTASSIUM 4.1 mmol/L (3.5-5.1)
[2020-11-16 08:54] LABS: CALCIUM 8.9 mg/dL (8.3-10.5)
[2020-11-16 08:55] LABS: TOTAL PROTEIN 7.3 g/dL (6.2-8.1)
[2020-11-16 08:57] LABS: TOTAL BILIRUBIN 0.5 mg/dL (0.2-1.2)
== END ==
LOC: LAB 08:12
PROVIDERS: Internal Medicine
DX: E11.51 Type 2 diabetes mellitus with diabetic peripheral angiopathy without gangrene (principal)

== ENCOUNTER → 2020-12-15 | Outpatient (CLI) | payer MEDICARE, OTHER ==
[~2020-12-15] VITALS: Wt 105.5 kg
[2020-12-15 11:53] VITALS: BP 121/51
== END ==
LOC: AMSURD 09:01
DX: U07.1 COVID-19 (principal); E11.9 Type 2 diabetes mellitus without complications
CPT/HCPCS: M0243; Q0244

== ENCOUNTER 2020-12-16 12:23 | Emergency (ER) | payer MEDICARE, OTHER ==
[~2020-12-16] VITALS: Ht 165.1 cm; Wt 105.0 kg
[~2020-12-16 12:23] MED LIST changes: -KLONOPIN 0.5MG0.5 MG PO
[2020-12-16] MEDS ORDERED: KLONOPIN 0.5MG0.5 MG PO (12:53)
[2020-12-16] MEDS ORDERED: LEVEMIR FLEX100 U/ML SQ (12:56)
[2020-12-16] MEDS ORDERED: NOVOLOG FLEX100 U/ML SQ ×3 (12:58→13:02)
[2020-12-16 13:23] LABS: BASO # 0.01 K/mm3 (0.02-0.10); EOS # 0.01 K/mm3 (0.04-0.40); EOS % 0.3 % (0.0-4.0); HEMATOCRIT 43.8 % (42.0-52.0); HEMOGLOBIN 14.2 g/dL (13.5-18.0); LYMPH# 1.62 K/mm3 (1.50-4.00); MEAN CELL VOLUME 95 fl (78-100); MEAN CORPUSCULAR HEMOGLOBIN 31 pg (27-31); MEAN CORPUSCULAR HGB CONC 32 g/dL (33-37); MEAN PLATELET VOLUME 9.7 fl (7.4-10.4); MONO # 0.27 K/mm3 (0.20-0.80); NEU # 1.87 K/mm3 (1.40-6.50); PLATELET COUNT 110 K/mm3 (130-400); RED BLOOD COUNT 4.59 M/mm3 (4.20-5.60); RED CELL DISTRIBUTION WIDTH 13.5 % (11.5-14.5); WHITE BLOOD COUNT 3.8 K/mm3 (4.8-10.8)
[2020-12-16 13:36] LABS: ALBUMIN 3.1 g/dL (3.4-4.8)
[2020-12-16 13:37] LABS: POTASSIUM 4.1 mmol/L (3.5-5.1)
[2020-12-16 13:38] LABS: CALCIUM 7.9 mg/dL (8.3-10.5)
[2020-12-16 13:39] LABS: TOTAL PROTEIN 6.7 g/dL (6.2-8.1)
[2020-12-16 13:41] LABS: TOTAL BILIRUBIN 0.5 mg/dL (0.2-1.2)
[2020-12-16 13:52] LABS: TROPONIN-I 0.04 ng/mL (<0.030)
[2020-12-16 14:04] LABS: PROTHROMBIN TIME 10.6 SECONDS (9.0-12.0)
[2020-12-16 14:10] LABS: D-DIMER 0.52 mg/L FEU (0.15-0.50)
[2020-12-16 18:41] VITALS: BP 136/62
== END 2020-12-16 18:42 | disposition home or self-care (01) ==
LOC: ED 12:23
PROVIDERS: Nurse Practitioner
DX: U07.1 COVID-19 (principal); R09.02 Hypoxemia; G47.36 Sleep related hypoventilation in conditions classified elsewhere; I10 Essential (primary) hypertension; E66.9 Obesity, unspecified; E11.40 Type 2 diabetes mellitus with diabetic neuropathy, unspecified; Z79.4 Long term (current) use of insulin; Z79.84 Long term (current) use of oral hypoglycemic drugs; Z68.38 Body mass index [BMI] 38.0-38.9, adult
CPT/HCPCS: J7030; Q9967

== ENCOUNTER → 2021-02-20 | Outpatient (CLI) | payer MEDICARE, OTHER, MEDICAID ==
[~2021-02-20] MED LIST changes: +KLONOPIN 0.5MG0.5 MG PO
[2021-02-20 07:46] LABS: BASO # 0.04 K/mm3 (0.02-0.10); EOS # 0.38 K/mm3 (0.04-0.40); EOS % 6.5 % (0.0-4.0); HEMATOCRIT 43.8 % (42.0-52.0); HEMOGLOBIN 14.5 g/dL (13.5-18.0); LYMPH# 1.98 K/mm3 (1.50-4.00); MEAN CELL VOLUME 92 fl (78-100); MEAN CORPUSCULAR HEMOGLOBIN 31 pg (27-31); MEAN CORPUSCULAR HGB CONC 33 g/dL (33-37); MEAN PLATELET VOLUME 9.8 fl (7.4-10.4); MONO # 0.57 K/mm3 (0.20-0.80); NEU # 2.86 K/mm3 (1.40-6.50); PLATELET COUNT 171 K/mm3 (130-400); RED BLOOD COUNT 4.76 M/mm3 (4.20-5.60); RED CELL DISTRIBUTION WIDTH 13.1 % (11.5-14.5); WHITE BLOOD COUNT 5.8 K/mm3 (4.8-10.8)
[2021-02-20 07:52] LABS: ALBUMIN 3.5 g/dL (3.4-4.8); POTASSIUM 4.1 mmol/L (3.5-5.1)
[2021-02-20 07:53] LABS: CALCIUM 8.8 mg/dL (8.3-10.5)
[2021-02-20 07:55] LABS: TOTAL PROTEIN 7.1 g/dL (6.2-8.1)
[2021-02-20 07:56] LABS: TOTAL BILIRUBIN 0.5 mg/dL (0.2-1.2)
== END ==
LOC: LAB 07:31
PROVIDERS: Internal Medicine
DX: E11.9 Type 2 diabetes mellitus without complications (principal)

== ENCOUNTER → 2021-02-22 | Outpatient (CLI) | payer MEDICARE, OTHER, MEDICAID ==
[2021-02-22 05:18] LABS: URINE APPEARANCE CLEAR; URINE BILIRUBIN NEGATIVE (NEGATIVE); URINE BLOOD NEGATIVE (NEGATIVE); URINE COLOR YELLOW; URINE KETONE NEGATIVE (NEGATIVE); URINE LEUKOCYTE ESTERASE TRACE (NEGATIVE); URINE NITRATE NEGATIVE (NEGATIVE); URINE PROTEIN(semi-quant) TRACE (NEGATIVE); URINE UROBILINOGEN NORMAL (NORMAL)
[2021-02-22 05:19] LABS: URINE MUCUS PRESENT (NOT PRESENT)
== END ==
LOC: LAB 04:10
PROVIDERS: Internal Medicine
DX: N39.0 Urinary tract infection, site not specified (principal)

== ENCOUNTER → 2021-05-16 | Outpatient (CLI) | payer MEDICARE, OTHER, MEDICAID ==
[2021-05-16 13:54] LABS: HEMATOCRIT 47.5 % (42.0-52.0); HEMOGLOBIN 15.3 g/dL (13.5-18.0); MEAN PLATELET VOLUME 10.1 fl (7.4-10.4); RED BLOOD COUNT 5.1 M/mm3 (4.20-5.60); RED CELL DISTRIBUTION WIDTH 13.6 % (11.5-14.5); WHITE BLOOD COUNT 5.7 K/mm3 (4.8-10.8)
[2021-05-16 13:57] LABS: POTASSIUM 4.3 mmol/L (3.5-5.1)
[2021-05-16 13:58] LABS: ALBUMIN 3.8 g/dL (3.4-4.8)
[2021-05-16 14:00] LABS: TOTAL PROTEIN 7.6 g/dL (6.2-8.1)
[2021-05-16 14:02] LABS: TOTAL BILIRUBIN 0.6 mg/dL (0.2-1.2)
== END ==
LOC: LAB 13:19
PROVIDERS: Internal Medicine
DX: I10 Essential (primary) hypertension (principal); E11.9 Type 2 diabetes mellitus without complications; R00.1 Bradycardia, unspecified

== ENCOUNTER → 2021-07-18 | Outpatient (CLI) | payer MEDICARE, OTHER, MEDICAID ==
[2021-07-18 08:26] LABS: BASO # 0.05 K/mm3 (0.02-0.10); EOS # 0.22 K/mm3 (0.04-0.40); EOS % 3.5 % (0.0-4.0); HEMATOCRIT 46.4 % (42.0-52.0); HEMOGLOBIN 15.3 g/dL (13.5-18.0); LYMPH# 2.53 K/mm3 (1.50-4.00); MEAN CELL VOLUME 92 fl (78-100); MEAN CORPUSCULAR HEMOGLOBIN 31 pg (27-31); MEAN CORPUSCULAR HGB CONC 33 g/dL (33-37); MEAN PLATELET VOLUME 10.3 fl (7.4-10.4); MONO # 0.56 K/mm3 (0.20-0.80); NEU # 2.85 K/mm3 (1.40-6.50); PLATELET COUNT 196 K/mm3 (130-400); RED BLOOD COUNT 5.02 M/mm3 (4.20-5.60); RED CELL DISTRIBUTION WIDTH 13.8 % (11.5-14.5); WHITE BLOOD COUNT 6.2 K/mm3 (4.8-10.8)
[2021-07-18 08:36] LABS: ALBUMIN 3.7 g/dL (3.4-4.8); POTASSIUM 4.2 mmol/L (3.5-5.1)
[2021-07-18 08:37] LABS: CALCIUM 8.8 mg/dL (8.3-10.5)
[2021-07-18 08:38] LABS: TOTAL PROTEIN 6.9 g/dL (6.2-8.1)
[2021-07-18 08:40] LABS: TOTAL BILIRUBIN 0.4 mg/dL (0.2-1.2)
== END ==
LOC: LAB 07:26
PROVIDERS: Internal Medicine
DX: K90.9 Intestinal malabsorption, unspecified (principal); E11.9 Type 2 diabetes mellitus without complications; I10 Essential (primary) hypertension

== ENCOUNTER → 2021-08-22 | Outpatient (CLI) | payer MEDICARE, OTHER, MEDICAID ==
[2021-08-22 06:56] LABS: BASO # 0.02 K/mm3 (0.02-0.10); EOS # 0.22 K/mm3 (0.04-0.40); EOS % 4.1 % (0.0-4.0); HEMATOCRIT 41.3 % (42.0-52.0); HEMOGLOBIN 13.6 g/dL (13.5-18.0); LYMPH# 2.09 K/mm3 (1.50-4.00); MEAN CELL VOLUME 93 fl (78-100); MEAN CORPUSCULAR HEMOGLOBIN 31 pg (27-31); MEAN CORPUSCULAR HGB CONC 33 g/dL (33-37); MEAN PLATELET VOLUME 10.1 fl (7.4-10.4); MONO # 0.55 K/mm3 (0.20-0.80); NEU # 2.46 K/mm3 (1.40-6.50); PLATELET COUNT 161 K/mm3 (130-400); RED BLOOD COUNT 4.42 M/mm3 (4.20-5.60); RED CELL DISTRIBUTION WIDTH 13.5 % (11.5-14.5); WHITE BLOOD COUNT 5.4 K/mm3 (4.8-10.8)
[2021-08-22 08:58] LABS: ALBUMIN 3.6 g/dL (3.4-4.8)
[2021-08-22 08:59] LABS: CALCIUM 8.8 mg/dL (8.3-10.5)
[2021-08-22 09:00] LABS: TOTAL PROTEIN 6.8 g/dL (6.2-8.1)
[2021-08-22 09:02] LABS: TOTAL BILIRUBIN 0.5 mg/dL (0.2-1.2)
== END ==
LOC: LAB 05:49
PROVIDERS: Internal Medicine
DX: E11.9 Type 2 diabetes mellitus without complications (principal)

== ENCOUNTER → 2021-09-18 | Outpatient (CLI) | payer MEDICARE, OTHER, MEDICAID | LOC: RAD 15:04 | DX: R05.3 Chronic cough (principal); K44.9 Diaphragmatic hernia without obstruction or gangrene ==

== ENCOUNTER → 2021-12-01 | Outpatient (CLI) | payer MEDICARE, OTHER, MEDICAID ==
[~2021-12-01] MED LIST changes: +BENADRYL ALLERG25 M2 PO; +ESCITALOPRAM5 MG PO; +K-TAB20 MEQ PO; +KLONOPIN 1MG1 MG PO; +LASIX 80MG TABL80 MG; +METOLAZONE5 MG PO; +POTASSIUM CHLO10 ME8 PO; +SOTALOL HYDROCH80 MG PO
[2021-12-01 07:53] LABS: CALCIUM 8.7 mg/dL (8.3-10.5)
[2021-12-01 07:59] LABS: MAGNESIUM 2.05 mg/dL (1.60-2.60)
[2021-12-01 08:13] LABS: POTASSIUM 2.5 mmol/L (3.5-5.1)
== END ==
LOC: LAB 07:12
PROVIDERS: Internal Medicine
DX: I87.2 Venous insufficiency (chronic) (peripheral) (principal)

== ENCOUNTER → 2021-12-06 | Outpatient (CLI) | payer MEDICARE, OTHER, MEDICAID ==
[2021-12-06 17:13] LABS: POTASSIUM 3.6 mmol/L (3.5-5.1)
[2021-12-06 17:14] LABS: CALCIUM 9.4 mg/dL (8.3-10.5)
== END ==
LOC: LAB 16:44
PROVIDERS: Family Medicine
DX: E87.6 Hypokalemia (principal)

== ENCOUNTER → 2021-12-13 | Outpatient (CLI) | payer MEDICARE, OTHER, MEDICAID ==
[2021-12-13 16:26] LABS: ALBUMIN 3.6 g/dL (3.4-4.8); POTASSIUM 3.4 mmol/L (3.5-5.1)
[2021-12-13 16:27] LABS: CALCIUM 9.1 mg/dL (8.3-10.5)
[2021-12-13 16:28] LABS: TOTAL PROTEIN 7.9 g/dL (6.2-8.1)
[2021-12-13 16:30] LABS: TOTAL BILIRUBIN 0.6 mg/dL (0.2-1.2)
[2021-12-13 16:35] LABS: MAGNESIUM 2.08 mg/dL (1.60-2.60)
== END ==
LOC: LAB 15:28
PROVIDERS: Internal Medicine
DX: E87.6 Hypokalemia (principal)

== ENCOUNTER → 2021-12-20 | Outpatient (CLI) | payer MEDICARE, OTHER, MEDICAID ==
[2021-12-20 08:15] LABS: BASO # 0.02 K/mm3 (0.02-0.10); EOS # 0.23 K/mm3 (0.04-0.40); EOS % 2.9 % (0.0-4.0); HEMOGLOBIN 15.5 g/dL (13.5-18.0); LYMPH# 2.56 K/mm3 (1.50-4.00); MEAN CELL VOLUME 93 fl (78-100); MEAN CORPUSCULAR HEMOGLOBIN 31 pg (27-31); MEAN CORPUSCULAR HGB CONC 34 g/dL (33-37); MEAN PLATELET VOLUME 9.3 fl (7.4-10.4); MONO # 0.71 K/mm3 (0.20-0.80); NEU # 4.32 K/mm3 (1.40-6.50); PLATELET COUNT 234 K/mm3 (130-400); RED BLOOD COUNT 4.97 M/mm3 (4.20-5.60); WHITE BLOOD COUNT 7.9 K/mm3 (4.8-10.8)
[2021-12-20 08:19] LABS: ALBUMIN 3.6 g/dL (3.4-4.8)
[2021-12-20 08:20] LABS: CALCIUM 9.1 mg/dL (8.3-10.5)
[2021-12-20 08:21] LABS: TOTAL PROTEIN 7.6 g/dL (6.2-8.1)
[2021-12-20 08:23] LABS: TOTAL BILIRUBIN 0.4 mg/dL (0.2-1.2)
[2021-12-20 09:31] LABS: POTASSIUM 2.7 mmol/L (3.5-5.1)
[2021-12-20 10:09] LABS: MAGNESIUM 2.16 mg/dL (1.60-2.60)
== END ==
LOC: LAB 07:46
PROVIDERS: Internal Medicine
DX: E11.9 Type 2 diabetes mellitus without complications (principal); I10 Essential (primary) hypertension; K90.9 Intestinal malabsorption, unspecified; I87.2 Venous insufficiency (chronic) (peripheral)

== ENCOUNTER → 2021-12-25 | Outpatient (CLI) | payer MEDICARE, OTHER, MEDICAID ==
[2021-12-25 18:31] LABS: POTASSIUM 3.7 mmol/L (3.5-5.1)
[2021-12-25 18:32] LABS: CALCIUM 8.9 mg/dL (8.3-10.5)
[2021-12-25 18:39] LABS: MAGNESIUM 1.82 mg/dL (1.60-2.60)
== END ==
LOC: LAB 16:43
PROVIDERS: Internal Medicine
DX: E87.6 Hypokalemia (principal)

== ENCOUNTER → 2022-04-16 | Outpatient (CLI) | payer MEDICARE, OTHER, MEDICAID | LOC: RAD 10:41 | DX: I48.92 Unspecified atrial flutter (principal); I34.0 Nonrheumatic mitral (valve) insufficiency; I27.20 Pulmonary hypertension, unspecified ==

== ENCOUNTER → 2022-05-16 | Outpatient (CLI) | payer MEDICARE, OTHER, MEDICAID ==
[2022-05-16 16:05] LABS: URINE APPEARANCE CLEAR; URINE BILIRUBIN NEGATIVE (NEGATIVE); URINE BLOOD NEGATIVE (NEGATIVE); URINE COLOR YELLOW; URINE KETONE NEGATIVE (NEGATIVE); URINE LEUKOCYTE ESTERASE NEGATIVE (NEGATIVE); URINE MUCUS PRESENT (NOT PRESENT); URINE NITRATE NEGATIVE (NEGATIVE); URINE PROTEIN(semi-quant) TRACE (NEGATIVE); URINE UROBILINOGEN NORMAL (NORMAL); URINE WBC 0-1 /hpf (0-3)
[2022-05-16 17:02] LABS: HEMATOCRIT 43.8 % (42.0-52.0); HEMOGLOBIN 14.9 g/dL (13.5-18.0); MEAN PLATELET VOLUME 9.8 fl (7.4-10.4); RED BLOOD COUNT 4.56 M/mm3 (4.20-5.60); RED CELL DISTRIBUTION WIDTH 12.7 % (11.5-14.5); WHITE BLOOD COUNT 8.2 K/mm3 (4.8-10.8)
[2022-05-16 17:06] LABS: ALBUMIN 3.8 g/dL (3.4-4.8); POTASSIUM 4.1 mmol/L (3.5-5.1)
[2022-05-16 17:07] LABS: CALCIUM 9.5 mg/dL (8.3-10.5)
[2022-05-16 17:09] LABS: TOTAL PROTEIN 7.4 g/dL (6.2-8.1)
[2022-05-16 17:10] LABS: TOTAL BILIRUBIN 0.4 mg/dL (0.2-1.2)
[2022-05-17 16:59] LABS: CREATININE OTHER SOURCE 83 mg/dL (47-110)
== END ==
LOC: LAB 15:39
PROVIDERS: Internal Medicine
DX: E11.65 Type 2 diabetes mellitus with hyperglycemia (principal); R94.6 Abnormal results of thyroid function studies; N39.0 Urinary tract infection, site not specified

== ENCOUNTER → 2022-12-13 | Outpatient (CLI) | payer MEDICARE, OTHER, MEDICAID | LOC: LAB 08:48 | DX: M79.672 Pain in left foot (principal); R26.2 Difficulty in walking, not elsewhere classified; G62.89 Other specified polyneuropathies ==

== ENCOUNTER → 2023-05-07 | Outpatient (REF) | payer MEDICARE, MEDICAID, OTHER ==
[2023-05-07 11:06] LABS: BASO # 0.02 K/mm3 (0.02-0.10); EOS # 0.17 K/mm3 (0.04-0.40); EOS % 1.9 % (0.0-4.0); LYMPH# 1.54 K/mm3 (1.50-4.00); MEAN CELL VOLUME 96 fl (78-100); MEAN CORPUSCULAR HEMOGLOBIN 33 pg (27-31); MEAN CORPUSCULAR HGB CONC 34 g/dL (33-37); MEAN PLATELET VOLUME 10.3 fl (7.4-10.4); MONO # 0.68 K/mm3 (0.20-0.80); NEU # 6.47 K/mm3 (1.40-6.50); PLATELET COUNT 194 K/mm3 (130-400); RED BLOOD COUNT 4.57 M/mm3 (4.20-5.60); RED CELL DISTRIBUTION WIDTH 14.2 % (11.5-14.5); WHITE BLOOD COUNT 8.9 K/mm3 (4.8-10.8)
[2023-05-07 11:13] LABS: CALCIUM 9.6 mg/dL (8.3-10.5)
[2023-05-07 11:14] LABS: TOTAL PROTEIN 7.8 g/dL (6.2-8.1)
[2023-05-07 11:16] LABS: TOTAL BILIRUBIN 0.8 mg/dL (0.2-1.2)
[2023-05-07 11:20] LABS: MAGNESIUM 1.93 mg/dL (1.60-2.60)
== END ==
LOC: LAB 10:31 → EDSTATUS 10:35
PROVIDERS: Internal Medicine
DX: R19.7 Diarrhea, unspecified (principal)

== ENCOUNTER → 2023-05-08 | Outpatient (REF) | payer MEDICARE, MEDICAID, OTHER | LOC: LAB 06:25 | DX: R19.7 Diarrhea, unspecified (principal) ==

== ENCOUNTER → 2023-06-28 | Outpatient (REF) | payer MEDICARE, OTHER, MEDICAID ==
[2023-08-19 16:25] LABS: HEMATOCRIT 39.3 % (42.0-52.0); HEMOGLOBIN 13.1 g/dL (13.5-18.0); MEAN PLATELET VOLUME 10.6 fl (7.4-10.4); RED CELL DISTRIBUTION WIDTH 14.2 % (11.5-14.5); WHITE BLOOD COUNT 4.7 K/mm3 (4.8-10.8)
== END ==
LOC: LAB 17:30
PROVIDERS: Internal Medicine
DX: Z01.89 Encounter for other specified special examinations (principal)

== ENCOUNTER → 2023-08-21 | Outpatient (CLI) | payer MEDICARE, OTHER, MEDICAID | LOC: AMSURD 14:20 | DX: I48.0 Paroxysmal atrial fibrillation (principal) ==

== ENCOUNTER → 2023-08-31 | Outpatient (REF) | payer MEDICARE, OTHER, MEDICAID ==
[2023-08-31 08:17] LABS: PH-URINE 8.5 (5.0 - 8.0); URINE APPEARANCE SLIGHTLY CLOUDY (CLEAR); URINE BILIRUBIN NEGATIVE (NEGATIVE); URINE BLOOD 2+ (NEGATIVE); URINE COLOR YELLOW (YELLOW); URINE GLUCOSE NEGATIVE (NEGATIVE); URINE KETONE NEGATIVE (NEGATIVE); URINE LEUKOCYTE ESTERASE 3+ (NEGATIVE); URINE NITRATE POSITIVE (NEGATIVE); URINE PROTEIN(semi-quant) 2+ (NEGATIVE); URINE WBC >50 /hpf (0-3)
== END ==
LOC: LAB 07:29
PROVIDERS: Internal Medicine
DX: R35.0 Frequency of micturition (principal)

== ENCOUNTER → 2023-09-24 | Outpatient (REF) | payer MEDICARE, OTHER, MEDICAID ==
[2023-09-24 21:12] LABS: CALCIUM 9.7 mg/dL (8.3-10.5)
[2023-09-24 21:19] LABS: MAGNESIUM 1.84 mg/dL (1.60-2.60)
== END ==
LOC: LAB 20:46
PROVIDERS: Internal Medicine
DX: I50.9 Heart failure, unspecified (principal); R60.9 Edema, unspecified

== ENCOUNTER 2023-12-01 19:05 | Emergency (ER) | payer MEDICARE, OTHER, MEDICAID ==
[~2023-12-01] VITALS: Ht 162.6 cm; Wt 101.9 kg
[2023-12-01] MEDS ORDERED: ZYLOPRIM 100MG100 MG PO (19:34)
[2023-12-01] MEDS ORDERED: ALDACTONE 25MG25 MG PO (19:37)
[2023-12-01] MEDS ORDERED: COLCHICINE0.6 M2 PO (19:39)
[2023-12-01 20:04] LABS: BASO # 0.02 K/mm3 (0.02-0.10); EOS # 0.08 K/mm3 (0.04-0.40); EOS % 0.7 % (0.0-4.0); HEMATOCRIT 39.8 % (42.0-52.0); HEMOGLOBIN 13.1 g/dL (13.5-18.0); LYMPH# 1.49 K/mm3 (1.50-4.00); MEAN CELL VOLUME 102 fl (78-100); MEAN CORPUSCULAR HEMOGLOBIN 34 pg (27-31); MEAN CORPUSCULAR HGB CONC 33 g/dL (33-37); MEAN PLATELET VOLUME 10.3 fl (7.4-10.4); MONO # 0.61 K/mm3 (0.20-0.80); NEU # 8.49 K/mm3 (1.40-6.50); PLATELET COUNT 153 K/mm3 (130-400); RED BLOOD COUNT 3.91 M/mm3 (4.20-5.60); RED CELL DISTRIBUTION WIDTH 13.6 % (11.5-14.5); WHITE BLOOD COUNT 10.7 K/mm3 (4.8-10.8)
[2023-12-01 20:12] LABS: ALBUMIN 3.8 g/dL (3.4-4.8)
[2023-12-01 20:13] LABS: CALCIUM 9.1 mg/dL (8.3-10.5)
[2023-12-01 20:14] LABS: TOTAL PROTEIN 7.3 g/dL (6.2-8.1)
[2023-12-01 20:16] LABS: TOTAL BILIRUBIN 0.5 mg/dL (0.2-1.2)
[2023-12-01] MEDS ORDERED: NS 500 ML IV SCH (20:30)
[2023-12-01 22:10] VITALS: BP 100/57
== END 2023-12-01 22:36 | disposition home or self-care (01) ==
LOC: ED 19:05
PROVIDERS: Physician Assistant
DX: E11.649 Type 2 diabetes mellitus with hypoglycemia without coma (principal); M54.2 Cervicalgia; M79.675 Pain in left toe(s); M79.672 Pain in left foot; W18.30XA Fall on same level, unspecified, initial encounter; Y92.091 Bathroom in other non-institutional residence as the place of occurrence of the external cause
CPT/HCPCS: J7040

== ENCOUNTER → 2023-12-09 | Outpatient (CLI) | payer MEDICARE, OTHER, MEDICAID ==
[~2023-12-09] MED LIST changes: +COLCHICINE0.6 M2 PO; +ZYLOPRIM 100MG100 MG PO
[2023-12-09 14:50] LABS: BASO # 0.03 K/mm3 (0.02-0.10); EOS # 0.14 K/mm3 (0.04-0.40); EOS % 2.2 % (0.0-4.0); HEMATOCRIT 40.9 % (42.0-52.0); HEMOGLOBIN 13.4 g/dL (13.5-18.0); LYMPH# 1.87 K/mm3 (1.50-4.00); MEAN CELL VOLUME 102 fl (78-100); MEAN CORPUSCULAR HEMOGLOBIN 33 pg (27-31); MEAN CORPUSCULAR HGB CONC 33 g/dL (33-37); MEAN PLATELET VOLUME 10.4 fl (7.4-10.4); MONO # 0.81 K/mm3 (0.20-0.80); NEU # 3.51 K/mm3 (1.40-6.50); PLATELET COUNT 189 K/mm3 (130-400); RED BLOOD COUNT 4.01 M/mm3 (4.20-5.60); RED CELL DISTRIBUTION WIDTH 14.1 % (11.5-14.5); WHITE BLOOD COUNT 6.4 K/mm3 (4.8-10.8)
[2023-12-09 14:53] LABS: CALCIUM 9.3 mg/dL (8.3-10.5)
[2023-12-09 14:54] LABS: TOTAL PROTEIN 7.6 g/dL (6.2-8.1)
[2023-12-09 14:56] LABS: TOTAL BILIRUBIN 0.7 mg/dL (0.2-1.2)
[2023-12-09 15:01] LABS: MAGNESIUM 1.87 mg/dL (1.60-2.60)
== END ==
LOC: LAB 14:19
PROVIDERS: Internal Medicine
DX: I10 Essential (primary) hypertension (principal); E11.9 Type 2 diabetes mellitus without complications

== ENCOUNTER → 2024-03-02 | Outpatient (REF) | payer MEDICARE, OTHER, MEDICAID | LOC: LAB 08:25 | DX: Z01.89 Encounter for other specified special examinations (principal) ==

== ENCOUNTER → 2024-03-30 | Outpatient (CLI) | payer MEDICARE, OTHER, MEDICAID ==
[2024-03-30 11:40] LABS: BASO # 0.02 K/mm3 (0.02-0.10); EOS # 0.15 K/mm3 (0.04-0.40); EOS % 3.3 % (0.0-4.0); HEMATOCRIT 41.5 % (42.0-52.0); HEMOGLOBIN 13.3 g/dL (13.5-18.0); LYMPH# 1.24 K/mm3 (1.50-4.00); MEAN CELL VOLUME 102 fl (78-100); MEAN CORPUSCULAR HEMOGLOBIN 33 pg (27-31); MEAN CORPUSCULAR HGB CONC 32 g/dL (33-37); MEAN PLATELET VOLUME 9.8 fl (7.4-10.4); MONO # 0.39 K/mm3 (0.20-0.80); NEU # 2.68 K/mm3 (1.40-6.50); PLATELET COUNT 150 K/mm3 (130-400); RED BLOOD COUNT 4.07 M/mm3 (4.20-5.60); RED CELL DISTRIBUTION WIDTH 13.5 % (11.5-14.5); WHITE BLOOD COUNT 4.5 K/mm3 (4.8-10.8)
[2024-03-30 11:47] LABS: ALBUMIN 3.9 g/dL (3.4-4.8)
[2024-03-30 11:48] LABS: CALCIUM 9.6 mg/dL (8.3-10.5)
[2024-03-30 11:51] LABS: TOTAL BILIRUBIN 0.5 mg/dL (0.2-1.2)
[2024-03-30 11:56] LABS: MAGNESIUM 1.95 mg/dL (1.60-2.60)
== END ==
LOC: LAB 11:00
PROVIDERS: Internal Medicine
DX: K90.9 Intestinal malabsorption, unspecified (principal); I48.0 Paroxysmal atrial fibrillation; E11.9 Type 2 diabetes mellitus without complications; E78.2 Mixed hyperlipidemia; M10.9 Gout, unspecified

== ENCOUNTER → 2024-04-24 | Outpatient (CLI) | payer MEDICARE, OTHER, MEDICAID ==
[~2024-04-24] VITALS: Ht 154.9 cm; Wt 98.4 kg
[~2024-04-24] MED LIST changes: +Regadenoson 0.08 MG/ML 5 ML VIAL IV SCH
== END ==
LOC: CARDREHAB 07:50
DX: I42.9 Cardiomyopathy, unspecified (principal)
CPT/HCPCS: A9500; J2785

== ENCOUNTER → 2024-05-28 | Outpatient (CLI) | payer MEDICARE, OTHER, MEDICAID ==
[~2024-05-28] MED LIST changes: -Regadenoson 0.08 MG/ML 5 ML VIAL IV SCH
[2024-05-28 11:58] LABS: BASO # 0.03 K/mm3 (0.02-0.10); EOS # 0.09 K/mm3 (0.04-0.40); EOS % 2.1 % (0.0-4.0); HEMATOCRIT 35.3 % (42.0-52.0); HEMOGLOBIN 11.6 g/dL (13.5-18.0); LYMPH# 1.46 K/mm3 (1.50-4.00); MEAN CELL VOLUME 102 fl (78-100); MEAN CORPUSCULAR HEMOGLOBIN 34 pg (27-31); MEAN CORPUSCULAR HGB CONC 33 g/dL (33-37); MEAN PLATELET VOLUME 9.4 fl (7.4-10.4); MONO # 0.39 K/mm3 (0.20-0.80); NEU # 2.34 K/mm3 (1.40-6.50); PLATELET COUNT 150 K/mm3 (130-400); RED BLOOD COUNT 3.46 M/mm3 (4.20-5.60); RED CELL DISTRIBUTION WIDTH 14.2 % (11.5-14.5); WHITE BLOOD COUNT 4.3 K/mm3 (4.8-10.8)
[2024-05-28 12:08] LABS: CALCIUM 8.9 mg/dL (8.3-10.5)
[2024-05-28 12:15] LABS: MAGNESIUM 2.17 mg/dL (1.60-2.60)
== END ==
LOC: LAB 11:41
PROVIDERS: Internal Medicine
DX: I27.20 Pulmonary hypertension, unspecified (principal); I10 Essential (primary) hypertension

== ENCOUNTER → 2024-05-29 | Outpatient (REF) | payer MEDICARE, OTHER, MEDICAID ==
[2024-05-29 15:03] LABS: BASO # 0.02 K/mm3 (0.02-0.10); EOS # 0.09 K/mm3 (0.04-0.40); EOS % 1.9 % (0.0-4.0); HEMATOCRIT 35.2 % (42.0-52.0); HEMOGLOBIN 11.7 g/dL (13.5-18.0); LYMPH# 1.99 K/mm3 (1.50-4.00); MEAN CELL VOLUME 102 fl (78-100); MEAN CORPUSCULAR HEMOGLOBIN 34 pg (27-31); MEAN CORPUSCULAR HGB CONC 33 g/dL (33-37); MEAN PLATELET VOLUME 10.3 fl (7.4-10.4); MONO # 0.66 K/mm3 (0.20-0.80); NEU # 2.01 K/mm3 (1.40-6.50); PLATELET COUNT 178 K/mm3 (130-400); RED BLOOD COUNT 3.46 M/mm3 (4.20-5.60); RED CELL DISTRIBUTION WIDTH 14.5 % (11.5-14.5); WHITE BLOOD COUNT 4.8 K/mm3 (4.8-10.8)
[2024-05-29 15:10] LABS: CALCIUM 8.8 mg/dL (8.3-10.5)
== END ==
LOC: LAB 14:44
PROVIDERS: Internal Medicine
DX: I10 Essential (primary) hypertension (principal); D64.9 Anemia, unspecified